=== PATIENT | female | born 1960 | race Caucasian/White ===

== ENCOUNTER → 2020-10-25 | Outpatient (CLI) | payer BC, OTHER ==
[~2020-10-25] VITALS: Ht 180.3 cm; Wt 47.6 kg
[~2020-10-25] MED LIST: CELEBREX 200 M200 MG PO; CRESTOR20 MG PO; CYCLOBENZAPRINE5 MG PO; FLONASE 0.05%50 MCG NARES; YUVAFEM10 MCG VAG
[2020-10-25 14:26] VITALS: BP 112/75
--- NOTE | 2020-10-25 14:51 | NUR ---
[facility] Clinic Assessment: 1. History of Osteoarthritis: KNEES LOW BACK History of Rheumatoid Arthritis: 2. Height: 5 ft. 11 in. 180.3 cm. Weight: 105.0 lb. oz. 47.628 kg. Patient's BMI: 14.7 3. Vital Signs: BP: 112/75 Pulse: 69 Resp: 14 Temp: 02 Sat: 98 ECG Mon: 4. Pain Intensity: 6 5. Fall Risk: Dizziness: N Needs help standing or walking: N Fallen in the last 3 months: N Fall risk comments: 6. Patient on Blood Thinner: None 7. History of Hypertension: N 8. Opioid Therapy greater than 6 weeks: N Opiate Contract Signed: 9. Risk Assessment Tool Provided: 0 LOW RISK 10. Functional Assessment Tool: 11. Recreational Drug Use: Never Drug Type: Tobacco Use: Never Smoker Tobacco Type: Amount or Packs/day: How Many Years: Alcohol Use: Yes Frequency: Weekly Quant: 1-2
== END ==
LOC: PAIN 06:57
PROVIDERS: ATTEND Anesthesiology Pain Medicine
DX: S76.312A Strain of muscle, fascia and tendon of the posterior muscle group at thigh level, left thigh, initial encounter (principal); M47.816 Spondylosis without myelopathy or radiculopathy, lumbar region; M25.59 Pain in other specified joint; M76.892 Other specified enthesopathies of left lower limb, excluding foot; M76.891 Other specified enthesopathies of right lower limb, excluding foot; M94.252 Chondromalacia, left hip; M94.251 Chondromalacia, right hip; M94.262 Chondromalacia, left knee; M94.261 Chondromalacia, right knee; M25.462 Effusion, left knee; M70.61 Trochanteric bursitis, right hip; X58.XXXA Exposure to other specified factors, initial encounter; Y93.89 Activity, other specified; Y92.89 Other specified places as the place of occurrence of the external cause; Y99.8 Other external cause status